=== PATIENT | male | born 2000 ===

== ENCOUNTER → 2021-10-13 | Outpatient (REF) | LOC: M LAB 12:25 | DX: Z02.1 Encounter for pre-employment examination (principal) ==

== ENCOUNTER → 2021-10-28 | Outpatient (REF) | LOC: M EMP 14:01 | PROVIDERS: ATTEND Family Medicine | DX: Z20.828 Contact with and (suspected) exposure to other viral communicable diseases (principal); Z11.59 Encounter for screening for other viral diseases ==